=== PATIENT | female | born 1985 | race Caucasian/White ===

== ENCOUNTER 2018-04-14 14:17 | Outpatient (CLI) | payer BC | END 2018-04-14 14:18 | disposition home or self-care (01) | LOC: BICRAD 14:17 | PROVIDERS: ATTEND Family Medicine | DX: R07.81 Pleurodynia (principal); R07.89 Other chest pain | CPT/HCPCS: 71120 ==

== ENCOUNTER 2019-07-24 11:45 | Day surgery (SDC) | payer BC ==
[2019-07-24 13:06] VITALS: BMI 41.6
== END 2019-07-24 14:00 | disposition home health service (06) ==
LOC: L&D/OP 11:45
PROVIDERS: ATTEND Obstetrics & Gynecology
DX: O12.00 Gestational edema, unspecified trimester (principal)
CPT/HCPCS: 99282

== ENCOUNTER 2019-08-16 05:34 | Inpatient (IN) | payer BC ==
[2019-08-16 06:05] VITALS: BMI 41.2
[2019-08-16] MEDS ORDERED: hydrALAZINE 20 MG/ML VIAL SLOW IVP PRN ×3 (06:33→17:54)
--- NOTE | 2019-08-16 06:34 | PDOC.FPROB ---
FMR OB H&P: HPI - History of Present Illness Chief Complaint: Contractions Indentification: 34yo G1 at 40.6wks History of Present Illness: 34yo G1 at 40.6wks presents with contractions since 8pm yesterday. Reports contractions have been every 2-4min. Reports losing mucus plug but denies VB, LOF. Primary Care Physician: Dr Correa FMR OB H&P: Current - Care : 1 Para: 0 Gestational age: 40.6wks Due date: 08/10/19 Course/Complications: Positive genetic screening test with follow up negative - OB Labs Blood type: A RH: positive Antibody Screen: negative HIV: negative RPR: negative HepBsAg: negative Rubella: immune Urine drug screen: negative Gonorrhea: negative Chlamydia: negative 1 hour gtt: 82 GBS: negative - First Trimester Ultrasound First trimester: 01/02/19 FMR OB H&P: History - Past Medical History PMH: Herpes on Valacyclovir - OB History OB History: None - Surgical History Sx History: Tonsillectomy - Social History Social History: Denies alcohol, tobacco and drug use - Family History Family History: Father- DM FMR OB H&P: Medications - Current Home Medications: Medication Instructions Recorded Confirmed Type Calcium Carbonate [Caltrate 600] 1 tab PO DAILY 07/24/19 08/16/19 History Docusate [Colace] 200 mg PO DAILY 07/24/19 08/16/19 History Ferrous Sulfate [Slow Release Iron] 47.5 mg PO DAILY 07/24/19 08/16/19 History Pnv No.95/Ferrous Fum/Folic AC 1 tab PO DAILY 07/24/19 08/16/19 History [ Formula Tablet] valACYclovir HCl [Valacyclovir] 1,000 mg PO DAILY 07/24/19 08/16/19 History Allergies/Adverse Reactions: Allergies Allergy/AdvReac Type Severity Reaction Status Date / Time No Known Allergies Allergy Verified 08/16/19 06:01 FMR OB H&P: ROS - Review of Systems General: denies: fever/chills, fatigue Eyes: denies: vision changes, double vision, scotomas ENT: denies: nasal congestion, rhinorrhea Cardiovascular: denies: chest pain, palpitation Respiratory: denies: congestion, shortness of breath Gastrointestinal: denies: nausea, vomiting Genitourinary (Female): reports: contractions. denies: dysuria, vaginal bleeding Musculoskeletal: denies: pain, swelling Integumentary: denies: itching, rash FMR OB H&P: Vital Signs - Maternal Vital signs: Vital Signs - First Documented Temp Pulse Resp BP Pulse Ox 98.3 F 90 20 135/78 99 08/16/19 05:39 08/16/19 05:39 08/16/19 05:39 08/16/19 05:39 08/16/19 05:39 - Heart Tones Baseline: 135 Variability: moderate Acceleration: present Deceleration: absent Category: category 1 [place] contractions every: 2-4 FMR OB H&P: Physical Exam - Physical Exam General: awake, alert and oriented Deviation from normal: Breathing through contractions. In distress HEENT: normocephalic and atraumatic, MMM, conjunctiva clear, grossly normal hearing, oropharynx clear Neck: supple, trachea midline Heart: RRR, no murmurs/rubs/gallops General: CTAB, no respiratory distress, good air movement Abdomen: soft, gravid, non-tender, bowel sound present Musculoskeletal: pulses present, FROM in all four extremities, no misalignment/ asymmetry, no atrophy Skin: no rash, good tugor, capillary refill <2 seconds Lymphatic: no unusual bruising or bleeding Psychiatric: intact recent and remote memory, good judgement and insight, normal mood and affect - Pelvic Exam SVE: /-2 FMR OB H&P: A/P Disposition: 34yo G1 at 40.6wks Term sIUP - Scheduled for cytotec induction tonight however pt is now and requesting epidural for pain. - FHTs Cat 1 - GBS neg - Admit to L&D - Anesthesia consulted - Will notify Dr Sunny Araya of HSV - On Valacyclovir - Last outbreak 2008 Abnormal genetic screen - 02/27/19, followed by normal Anemia in - Taking iron Discussion: Date/Time: 08/16/19 8833 This H&P was discussed with Dr. Celestin who agrees with the above documentation and plan. Addendum - Attending - Attending Attestation Date/Time: 08/16/19 [id number] I personally evaluated the patient and discussed the management with Dr. Amaro. I agree with the History, Examination, Assessment and Plan documented above.
[2019-08-16] MEDS: Lactated Ringer's 1,000 ML IV SCH ×3 (06:40→16:34)
[2019-08-16] MEDS ORDERED: Ondansetron PF 4 MG/2 ML Vial IVP PRN ×3 (06:55→17:54)
[2019-08-16] MEDS ORDERED: NS / Oxytocin 40 units/1000ml 1,000 ML IV PRN (06:55)
[2019-08-16] MEDS ORDERED: Lidocaine 1% (PF) 30 ML VIAL SC PRN (06:55)
[2019-08-16] MEDS ORDERED: Promethazine HCl 25 MG/ML VIAL IM PRN ×2 (06:55→08:50)
[2019-08-16] MEDS ORDERED: Butorphanol Tartrate 1 MG/ML VIAL SLOW IVP SCH (07:00)
[2019-08-16] MEDS ORDERED: Fentanyl 4 mcg/Bup 0.1% Cadd 100 ML ONE ×2 (07:47→14:59)
[2019-08-16 07:50] LABS: Hemoglobin 11.3 g/dL (12.0-16.0); Mean Corpuscular HGB CONC 34.2 g/dL (32.0-36.0); Mean Corpuscular Hemoglobin 31.8 pg (27.0-31.0); Mean Platelet Volume 9.7 fL (7.4-10.4); Platelet Count 263 thou/uL (130-400); RBC Distribution Width 13.7 % (11.5-14.5); Red Blood Cell (RBC) Count 3.55 mill/uL (4.20-5.40); White Blood Cell (WBC) Count 15.9 thou/uL (4.8-10.8)
[2019-08-16 08:10] LABS: Syphilis Antibody Nonreactive (Nonreactive); Syphilis Antibody Index 0.08 S/CO (<1.00 Non-Reactive)
[2019-08-16 08:11] LABS: HBSAg Index 0.15 S/CO (0-0.99); Hep B Surf Ag Non-Reactive S/CO (NonReactive)
--- NOTE | 2019-08-16 08:30 | PDOC.EVN ---
Event Note - Event Note Event Note: MARTHA Flores At bedside bed 6 Case reviewed Patient sitting up for epidural Dr Correa aware...has requested we "co-manage" as she may not be available. She has requested to be first for notifications from RN.
[2019-08-16] MEDS ORDERED: diphenhydrAMINE 50 MG/ML VIAL IVP PRN (08:50)
[2019-08-16] MEDS ORDERED: Acetaminophen 325 MG TAB PO PRN (08:50)
[2019-08-16] MEDS ORDERED: Lactated Ringer's 500 ML IV PRN (08:50)
[2019-08-16] MEDS ORDERED: ePHEDrine/0.9% NaCl/PF SYRINGE 50 mg/10 ml SLOW IVP PRN (08:50)
[2019-08-16] MEDS ORDERED: Naloxone HCl 0.4 mg/ml Vial IVP PRN ×2 (08:50)
[2019-08-16] MEDS ORDERED: Communication Order-Pharmacy FS SCH (09:00)
[2019-08-16] MEDS ORDERED: Fentanyl 4 mcg/Bupivacaine 0.1% Cassette 100 ML EPIDURAL SCH (09:00)
--- NOTE | 2019-08-16 11:10 | PDOC.LDPN ---
Labor & Delivery Progress Note - Subjective Subjective: comfortable - Objective Vital signs reviewed and normal: yes General: NAD SVE: By George at 11 Dilation: 6 Effacement: 100% Station: -1 FHT: category 1, variability present [place] contractions every: q2-5 min AROM: bloody fluid - Assessment (1) Term Code(s): Z34.90 - ENCNTR FOR SUPRVSN OF NORMAL , UNSP, UNSP TRIMESTER Current Visit: Yes Status: Acute Plan: continue plan of care, other (OBGYN OnCall: care plan noted. patient has yaw seen by me. 6cm now...BOW ruptured)
[2019-08-16] MEDS ORDERED: Bupivacaine/Epinephrine 0.25% 30 ML VIAL ONE (14:00)
--- NOTE | 2019-08-16 17:03 | PDOC.OPDEL ---
OB Operative/Delivery Note Delivery Dr/Surgeon: Sunny Pre-Delivery Diagnosis: active labor Procedure/Post Delivery Dx: spontaneous vaginal delivery Weeks gestation: 41 Anesthesia: epidural - Findings A Sex: female - 1 min: 8 - 5 min: 9 - Additional Findings/Plan Placenta delivered: spontaneous Repaired Obstetrical Laceration: 2nd degree Estimated blood loss: 175ml Post delivery plan: routine recovery
[2019-08-16] MEDS ORDERED: Bisacodyl 10 MG SUPP PR PRN (17:54)
[2019-08-16] MEDS ORDERED: Lanolin Ointment 7 GM TUBE TOP PRN (17:54)
[2019-08-16] MEDS ORDERED: Preparation H Ointment 28 GM TUBE PR PRN (17:54)
[2019-08-16] MEDS ORDERED: NS / Oxytocin 40 units/1000ml 1,000 ML IV SCH (17:54)
[2019-08-16] MEDS ORDERED: Benzocaine-Menthol 82.5 ML CAN TOP PRN (17:54)
[2019-08-16] MEDS ORDERED: Milk Of Magnesia 30 ML UDCUP PO PRN (17:54)
[2019-08-16] MEDS ORDERED: diphenhydrAMINE 25 MG CAP PO PRN (17:54)
[2019-08-16] MEDS ORDERED: Ampicillin 2 GM in Sodium Chloride 0.9% 100 ML IVPB SCH (19:00)
[2019-08-16] MEDS ORDERED: HYDROcodone/Acetaminophen 5/325 mg Tablet PO PRN (19:03)
[2019-08-16] MEDS: HYDROcodone/Acetaminophen 5/325 mg Tablet PO PRN ×2 (19:29→23:34)
[2019-08-16] MEDS: Docusate Calcium (SURFAK) 240 MG CAP PO SCH (21:16)
[2019-08-16] MEDS: Ibuprofen 800 MG TAB PO SCH (21:16)
[2019-08-17] MEDS: Ampicillin 2 GM in Sodium Chloride 0.9% 100 ML IVPB SCH ×4 (00:42→18:12)
[2019-08-17] MEDS: Ibuprofen 800 MG TAB PO SCH ×3 (05:30→21:12)
[2019-08-17] MEDS: Ferrous Sulfate 325 MG TAB PO SCH ×2 (07:20→17:01)
--- NOTE | 2019-08-17 08:11 | PDOC.PP ---
Post Progress Note Post Day #: 1 Subjective: doing well, no fever or chills, nursing well PO intake tolerated: yes Flatus: yes Ambulation: yes Vital Signs (12 hours) Temp Pulse Resp BP Pulse Ox 08/17/19 08:02 98.1 F 83 20 110/57 L 96 08/17/19 05:30 97.8 F 108 H 16 121/76 08/16/19 23:30 98.2 F 84 16 116/75 08/16/19 20:50 99.3 F 105 H 16 133/67 97 Weight Weight 279 lb - Physical Examination General: NAD Respiratory: non-labored breathing Abdominal: no distention Fundus firm & at: below umb Skin: no rash Neurological: no gross focal deficits Psychiatric: A&Ox3, normal affect Result Diagrams: 08/16/19 07:25 Additional Labs: Post Labs Blood Type A POSITIVE 08/16/19 07:37 Hep Bs Antigen Non-Reactive S/CO (NonReactive) 08/16/19 07:25 (1) Vaginal delivery Code(s): O80 - ENCOUNTER FOR FULL-TERM UNCOMPLICATED DELIVERY Status: Acute (2) fever, current hospitalization Code(s): O86.4 - PYREXIA OF UNKNOWN ORIGIN FOLLOWING DELIVERY Status: Acute - Assessment/Plan PPD1 doing well, afebrile on abx, will DC today at approx 1800 if remains afebrile. LC pending today.
[2019-08-17] MEDS ORDERED: Adacel (T-DAP) 0.5 ML SYRINGE IM ONE (09:00)
[2019-08-17] MEDS: Prenatal Vitamin 1 TAB PO SCH (09:12)
[2019-08-17] MEDS: Docusate Calcium (SURFAK) 240 MG CAP PO SCH ×2 (09:12→21:12)
[2019-08-17] MEDS: HYDROcodone/Acetaminophen 5/325 mg Tablet PO PRN ×2 (11:09→21:17)
[2019-08-18] MEDS: Ibuprofen 800 MG TAB PO SCH ×2 (05:47→14:03)
[2019-08-18 07:59] VITALS: BP 99/63; TEMP 98
--- NOTE | 2019-08-18 08:33 | PDOC.PP ---
Post Progress Note Post Day #: 1 Subjective: PPD 2 doing well, no concerns, no fever or chills. PO intake tolerated: yes Flatus: yes Ambulation: yes Vital Signs (12 hours) Temp Pulse Resp BP Pulse Ox 08/18/19 07:58 98.0 F 78 20 99/63 98 Weight Weight 279 lb - Physical Examination General: NAD Abdominal: no distention Fundus firm & at: below umb, NTTP Skin: no rash Neurological: no gross focal deficits Psychiatric: A&Ox3, normal affect Result Diagrams: 08/16/19 07:25 Additional Labs: Post Labs Blood Type A POSITIVE 08/16/19 07:37 Hep Bs Antigen Non-Reactive S/CO (NonReactive) 08/16/19 07:25 (1) Vaginal delivery Code(s): O80 - ENCOUNTER FOR FULL-TERM UNCOMPLICATED DELIVERY Status: Acute (2) fever, current hospitalization Code(s): O86.4 - PYREXIA OF UNKNOWN ORIGIN FOLLOWING DELIVERY Status: Acute - Assessment/Plan PPD2 doing well, no fevers of abx. Nursing well, plan for DC today.
[2019-08-18] MEDS: Ferrous Sulfate 325 MG TAB PO SCH (09:08)
[2019-08-18] MEDS: Docusate Calcium (SURFAK) 240 MG CAP PO SCH (09:08)
[2019-08-18] MEDS: Prenatal Vitamin 1 TAB PO SCH (09:08)
== END 2019-08-18 15:00 | disposition home or self-care (01) | DRG 806 ==
LOC: L&D/OP 05:34 → L&D 07:27 → 3SW 21:10
PROVIDERS: ADMIT Obstetrics & Gynecology; ATTEND Obstetrics & Gynecology
PROC: 10907ZC Drainage of Amniotic Fluid, Therapeutic from Products of Conception, Via Natural or Artificial Opening (ICD-10-PCS; principal; 2019-08-16)
PROC: 10E0XZZ Delivery of Products of Conception, External Approach (ICD-10-PCS; 2019-08-16)
PROC: 0KQM0ZZ Repair Perineum Muscle, Open Approach (ICD-10-PCS; 2019-08-16)
DX: O48.0 Post-term pregnancy (principal); O86.4 Pyrexia of unknown origin following delivery; Z37.0 Single live birth; O99.02 Anemia complicating childbirth; D64.9 Anemia, unspecified; O70.1 Second degree perineal laceration during delivery; Z3A.40 40 weeks gestation of pregnancy
CPT/HCPCS: 36415; 51702; 80170; 85027; 86780; 86850; 86900; 86901; 87340; 99285; J0290; J0595; J1580; J2001; J3490